=== PATIENT | male | born 1965 | race African-American/Black ===

== ENCOUNTER 2018-01-19 15:11 | Emergency (ER) | payer MEDICAID, OTHER ==
[~2018-01-19] VITALS: Ht 182.9 cm; Wt 104.0 kg
[2018-01-19] MEDS ORDERED: IBUPROFEN 600MG TABLET PO STA (20:21)
[2018-01-19 21:01] VITALS: BP 148/86
== END 2018-01-19 22:20 | disposition home or self-care (01) ==
LOC: ER 17:03
DX: G43.909 Migraine, unspecified, not intractable, without status migrainosus (principal); I10 Essential (primary) hypertension; E78.00 Pure hypercholesterolemia, unspecified
CPT/HCPCS: 99282